=== PATIENT | female | born 1975 | race African-American/Black ===

== ENCOUNTER 2017-05-29 16:34 | Emergency (ER) | payer MEDICAID ==
--- NOTE | 2017-05-29 17:03 | Emergency Department Record ---
History of Present Illness - General Chief complaint: Female Urogenital Problem Stated complaint: POSS UTI,ABSCESS TOOTH Time Seen by Provider: 05/29/17 16:58 Source: Patient Mode of Arrival: Ambulatory Limitations: No limitations - History of Present Illness Initial comments: 42 yo female presents with 3 days of 3 weeks of discomfort with urination. She has had UTI's as well as renal stones in the past. No fever, no hematuria. She is going more often and with some suprpubic discomfort. No symptoms consistent with prior renal stones. She additional has right upper dental pain for a few weeks. No facial swelling. No facial redness. . MD Complaint: Dysuria Onset/Timin -: Week(s) Severity scale (1-10): 7 Consistency: Constant Improves with: None Worsens with: Urination Patient : No Associated Symptoms: Denies other symptoms - Related Data Sexually active: No Previous Rx's Medication Instructions Recorded Amoxicillin/Potassium Clav 1 tab PO BID #20 tablet 05/29/17 [Augmentin 875Mg/125Mg] Allergies Allergy/AdvReac Type Severity Reaction Status Date / Time ciprofloxacin [From Cipro] Allergy PT UNSURE Unverified 12/01/16 09:35 OF REACTION ciprofloxacin HCl Allergy PT UNSURE Unverified 12/01/16 09:35 [From Cipro] OF REACTION Travel Screening - Travel/Exposure Within Last 30 Days Have you traveled within the last 30 days?: No Review of Systems Constitutional: Denies: Chills, Fever, Malaise, Weakness Eyes: Denies: Eye discharge ENT: Reports: As per HPI, Dental pain. Denies: Congestion, Throat pain Respiratory: Denies: Cough, Dyspnea, Hemoptysis, Stridor Cardiovascular: Denies: Chest pain, Palpitations, Syncope Endocrine: Denies: Fatigue, Polydipsia, Polyuria Gastrointestinal: Denies: Abdominal pain, Diarrhea, Nausea, Vomiting Genitourinary: Reports: Dysuria, Frequency, Urgency. Denies: Abnormal menses Musculoskeletal: Reports: Back pain (occasional mild, ). Denies: Arthralgia Skin: Denies: Bruising, Change in color, Rash Neurological: Denies: Headache, Numbness, Weakness Psychiatric: Denies: Anxiety Hematological/Lymphatic: Denies: Blood Clots, Easy bleeding, Easy bruising, Swollen glands Past Medical History - SOCIAL HISTORY Smoking Status: Former smoker Alcohol Use: None Drug Use: None - RESPIRATORY Hx Respiratory Disorders: No - CARDIOVASCULAR Hx Cardio Disorders: No - NEURO Hx Neuro Disorders: No - GI Hx GI Disorders: No - Hx Genitourinary Disorders: Yes Hx Kidney Stones: Yes (3 lithotrypsies) Hx UTI: Yes - ENDOCRINE Hx Endocrine Disorders: No - MUSCULOSKELETAL Hx Musculoskeletal Disorders: No - PSYCH Hx Psych Problems: No - HEMATOLOGY/ONCOLOGY Hx Hematology/Oncology Disorders: No Family Medical History Any Significant Family History?: No Physical Exam - General General Appearance: Alert, Oriented x3, Cooperative, No acute distress, Other ( WEll appearing, non ill appearing, sitting very comfortably) Limitations: No limitations - Head Head exam: Normocephalic, Normal inspection - Eye Eye exam: Normal appearance. negative: Conjunctival injection - ENT ENT exam: Normal exam, Mucous membranes moist, Normal orophraynx Ear exam: Normal external inspection. negative: External canal tenderness Nasal Exam: Normal inspection. negative: Discharge, Sinus tenderness Mouth exam: Normal external inspection, Tongue normal Teeth exam: Dental caries, Dental tenderness # (3), Other (no abscess, no swelling, normal gums). negative: Gingival enlargement Throat exam: Normal inspection. negative: Tonsillar erythema, Tonsillar exudate - Neck Neck exam: Normal inspection, Full ROM. negative: Tenderness - Respiratory Respiratory exam: Normal lung sounds bilaterally. negative: Respiratory distress - Cardiovascular Cardiovascular Exam: Regular rate, Normal rhythm, Normal heart sounds - GI/Abdominal GI/Abdominal exam: Soft. negative: Distended, Tenderness - Rectal Rectal exam: Deferred - exam: Deferred - Extremities Extremities exam: Normal inspection, Full ROM, Normal capillary refill. negative: Tenderness - Back Back exam: Reports: Normal inspection, Full ROM. Denies: CVA tenderness (R), CVA tenderness (L), Muscle spasm, Paraspinal tenderness, Rash noted, Tenderness , Vertebral tenderness - Neurological Neurological exam: Alert, Normal gait, Oriented X3, Reflexes normal - Psychiatric Psychiatric exam: Normal affect, Normal mood - Skin Skin exam: Dry, Intact, Normal color, Warm Course Vital Signs 05/29/17 16:38 Temperature 98.4 F Pulse Rate 80 Respiratory 18 Rate Blood Pressure 121/66 Pulse Ox 96 - Reevaluation(s) Reevaluation #1: 05/29/17 17:05 UA sent to the lab Reevaluation #2: UA is consistent with infection Given her dental pain as well she will be placed on Augmentin She does not have fever, no signs of renal stones clinically, no signs of pyelonephritis She was given the results and we discussed reasons for immediate return 05/29/17 17:29 Disposition Disposition: Discharge Clinical Impression: Pain, dental Urinary tract infection Qualifiers: Urinary tract infection type: acute cystitis Hematuria presence: without hematuria Qualified Code(s): N30.00 - Acute cystitis without hematuria Disposition: Home, Self-Care Condition: (1) Good Instructions: Urinary Tract Infection in Women (ED) Additional Instructions: Immediately return to the ER if you have fever, pain, vomiting, or any concerns Augmentin twice daily for one week Call your doctor to be seen this week to follow up the urine culture Follow up with your dentist as scheduled Prescriptions: Amoxicillin/Potassium Clav [Augmentin 875Mg/125Mg] 1 tab PO BID #20 tablet Forms: Patient Portal Access Time of Disposition: 17:32
[2017-05-29 17:22] LABS: URINE APPEARANCE SL CLOUDY; URINE BILIRUBIN NEGATIVE (NEGATIVE); URINE BLOOD SMALL (NEGATIVE); URINE COLOR YELLOW; URINE GLUCOSE (UA) NEGATIVE (NEGATIVE); URINE KETONE NEGATIVE (NEGATIVE); URINE LEUKOCYTE ESTERASE MODERATE (NEGATIVE); URINE NITRITE POSITIVE (NEGATIVE); URINE PROTEIN NEGATIVE (NEGATIVE); URINE UROBILINOGEN 0.2 E.U./dL (0.20 - 1.00)
[2017-05-29 17:23] LABS: HCG,QUALITATIVE URINE NEGATIVE (NEGATIVE)
[2017-05-29 17:26] LABS: URINE BACTERIA 4+
[2017-05-29] MEDS ORDERED: AMOXICILLIN/POTASSIUM CLAV 875MG/125MG TABLET PO ONE (17:31)
== END 2017-05-29 17:51 | disposition home or self-care (01) ==
LOC: ER 16:34
DX: N30.00 Acute cystitis without hematuria (principal); K08.89 Other specified disorders of teeth and supporting structures
CPT/HCPCS: 81001; 81025; 99283

== ENCOUNTER 2018-05-29 09:39 | Emergency (ER) | payer MEDICAID ==
[2018-05-29] MEDS ORDERED: ONDANSETRON HCL IV 4 MG/2 ML VIAL IVP ONE (09:50)
[2018-05-29] MEDS ORDERED: KETOROLAC 30 MG/ML VIAL IVP ONE (09:50)
--- NOTE | 2018-05-29 09:54 | Emergency Department Record ---
History of Present Illness - General Chief complaint: Flank Pain Stated complaint: kidney infection Time Seen by Provider: 05/29/18 09:41 Source: Patient Mode of Arrival: Ambulatory Limitations: No limitations - History of Present Illness Initial comments: 43 yo female with a previous history of kidney stones and kidney infections presents to ED for evaluation of bilateral flank pain symptoms and intermittent fever for the past 24 hours. Patient reports that she has seen a urologist through [facility], has undergone Lithotrypsy and laser previously. Patient denies abdominal pain or change in stools, and denies previous abdominal surgery. Patient did take 1000 mg of acetaminophen [employer]. MD Complaint: Other Onset/Timin -: Days(s) Radiation: L flank, R flank Severity: Moderate Quality: Aching Consistency: Constant Improves with: None Worsens with: None Associated Symptoms: Fever/chills - Related Data Allergies Allergy/AdvReac Type Severity Reaction Status Date / Time ciprofloxacin [From Cipro] Allergy PT UNSURE Verified 05/29/18 09:52 OF REACTION ciprofloxacin HCl Allergy PT UNSURE Verified 05/29/18 09:52 [From Cipro] OF REACTION Review of Systems Constitutional: Reports: Chills, Fever. Denies: Malaise, Night sweats Eyes: Denies: Eye discharge, Eye pain ENT: Denies: Congestion, Ear pain, Epistaxis Respiratory: Denies: Cough, Dyspnea Cardiovascular: Denies: Chest pain, Dyspnea on exertion Endocrine: Reports: Fatigue. Denies: Heat or cold intolerance Gastrointestinal: Reports: Nausea. Denies: Abdominal pain, Vomiting Genitourinary: Denies: Incontinence, Retention Musculoskeletal: Denies: Arthralgia, Back pain, Gout, Joint swelling Skin: Denies: Bruising, Change in color Neurological: Denies: Abnormal gait, Confusion, Headache, Seizure Psychiatric: Denies: Anxiety Hematological/Lymphatic: Denies: Anemia, Blood Clots Past Medical History - SOCIAL HISTORY Smoking Status: Former smoker Drug Use: None - RESPIRATORY Hx Respiratory Disorders: No - CARDIOVASCULAR Hx Cardio Disorders: No - NEURO Hx Neuro Disorders: No - GI Hx GI Disorders: No - Hx Genitourinary Disorders: Yes Hx Kidney Stones: Yes (3 lithotrypsies) Hx UTI: Yes - ENDOCRINE Hx Endocrine Disorders: No - MUSCULOSKELETAL Hx Musculoskeletal Disorders: No - PSYCH Hx Psych Problems: No - HEMATOLOGY/ONCOLOGY Hx Hematology/Oncology Disorders: No Physical Exam - General General Appearance: Alert, Oriented x3, Cooperative, Moderate distress Limitations: No limitations - Head Head exam: Atraumatic, Normocephalic, Normal inspection Head exam detail: negative: Abrasion, Contusion, Cintron's sign, General tenderness, Hematoma, Laceration - Eye Eye exam: Normal appearance. negative: Conjunctival injection, Periorbital swelling, Periorbital tenderness, Scleral icterus - ENT Ear exam: negative: Auricular hematoma, Auricular trauma Nasal Exam: negative: Active bleeding, Discharge, Dried blood, Foreign body Mouth exam: negative: Drooling, Laceration, Muffled voice, Tongue elevation - Neck Neck exam: Normal inspection. negative: Meningismus, Tenderness - Respiratory Respiratory exam: Normal lung sounds bilaterally. negative: Rales, Respiratory distress, Rhonchi, Stridor - Cardiovascular Cardiovascular Exam: Regular rate, Normal rhythm, Normal heart sounds - GI/Abdominal GI/Abdominal exam: Soft. negative: Rebound, Rigid, Tenderness - Rectal Rectal exam: Deferred - exam: Deferred - Extremities Extremities exam: Normal inspection. negative: Calf tenderness, Pedal edema, Tenderness - Back Back exam: Reports: CVA tenderness (R), CVA tenderness (L) - Neurological Neurological exam: Alert, Normal gait, Oriented X3 - Psychiatric Psychiatric exam: Normal affect, Normal mood - Skin Skin exam: Normal color. negative: Abrasion Type of lesion: negative: abrasion Course - Reevaluation(s) Reevaluation #1: 05/29/18 10:37 Labs reviewed: WBC 24.4 with 91% Neutrophils UA: 4+ Bacteria TNTC WBCs 21-35 RBCs Rocephin ordered to infuse. 2nd Liter NS and Lactic acid ordered as well. Reevaluation #2: 05/29/18 11:34 CT Abdomen and Pelvis: Hydronephrosis and hydorureter left extending to the UVJ No obstructing calculus is identified. Patient was updated on all results, Rocephin has completed infusing, and 2nd liter bolus is infusing currently as well. Will initiate transfer to [facility] per patient's wishes. 05/29/18 11:57 Reevaluation #3: 05/29/18 12:20 On-call urologist was contacted (Dr. Levy), left a message regarding the patient's CT findings, UA, and laboratory status and the [facility] number to return call for further information. Left message that [facility]. Medical Decision Making - Lab Data Result diagrams: 05/29/18 10:07 05/29/18 10:07 Disposition Disposition: Transfer Clinical Impression: Pyelonephritis Hydronephrosis Qualifiers: Hydronephrosis type: with ureteropelvic junction obstruction Qualified Code(s) : Q62.11 - Congenital occlusion of ureteropelvic junction Sepsis Qualifiers: Sepsis type: sepsis due to unspecified organism Qualified Code(s): A41.9 - Sepsis, unspecified organism Disposition: [facility] Transfer Transfer To: [facility] Reason For Transfer: Urology consultation Accepting Physician: Tyler Time Discussed w/Accepting Physician: 12:00 Condition: (3) Guarded Forms: Patient Portal Access Time of Disposition: 12:00 Quality - Quality Measures Quality Measures: N/A - Blood Pressure Screening Does Patient Have Any of the Following: No Blood Pressure Classification: Normal BP Reading Systolic Measurement: 102 Diastolic Measurement: 61 Screening for High Blood Pressure: < Normal BP, F/U Not Required > [G8783]
[2018-05-29] MEDS ORDERED: 0.9 % SODIUM CHLORIDE 1000ML 1,000 ML IV SCH ×2 (10:00→11:00)
[2018-05-29 10:13] LABS: HEMATOCRIT 37.9 % (35.0-47.0); HEMOGLOBIN 12.2 gm/dl (11.6-16.0); MEAN CELL VOLUME 87.1 fl (81-97); MEAN CORPUSCULAR HGB CONC 32.2 g/dl (32-36); MEAN PLATELET VOLUME 9.3 fl (7.4-10.4); PLATELET COUNT 278 K/uL (130-400); RED BLOOD COUNT 4.35 M/uL (3.80-5.40); RED CELL DISTRIBUTION WIDTH 14.4 % (11.5-14.5)
[2018-05-29 10:15] LABS: URINE APPEARANCE SL CLOUDY; URINE BILIRUBIN NEGATIVE (NEGATIVE); URINE BLOOD LARGE (NEGATIVE); URINE COLOR YELLOW; URINE GLUCOSE (UA) NEGATIVE (NEGATIVE); URINE KETONE NEGATIVE (NEGATIVE); URINE LEUKOCYTE ESTERASE LARGE (NEGATIVE); URINE NITRITE POSITIVE (NEGATIVE); URINE UROBILINOGEN 0.2 E.U./dL (0.20 - 1.00)
[2018-05-29 10:23] LABS: HCG,QUALITATIVE URINE NEGATIVE (NEGATIVE); URINE BACTERIA 4+; URINE RBC 21 - 35 (NONE SEEN); URINE SQUAMOUS EPITHELIAL CELL 21 - 35 /hpf
[2018-05-29] MEDS ORDERED: CEFTRIAXONE SODIUM 1 GM in 0.9 % SODIUM CHLORIDE 100ML 100 ML IVPB ONE (10:23)
[2018-05-29 10:28] LABS: BLOOD UREA NITROGEN 10 mg/dL (6-20); CREATININE 0.7 mg/dL (0.5-0.9); EST GLOMERULAR FILTRATION RATE > 60 mL/min
[2018-05-29 10:31] LABS: GLUCOSE,RANDOM 97 mg/dL (74-109)
[2018-05-29 10:33] LABS: ALT/SGPT 20 U/L (<33); AST/SGOT 21 U/L (10.0-35.0)
[2018-05-29 10:34] LABS: ALBUMIN 3.9 g/dL (4.0-5.0); ALKALINE PHOSPHATASE 118 U/L (35-104); WHITE BLOOD COUNT W/O DIFF 24.4 K/uL (4.2-12.2)
[2018-05-29] MEDS ORDERED: MORPHINE SULFATE 10 MG/ML VIAL IVP ONE (10:37)
--- NOTE | 2018-05-31 10:19 | CT SCAN REPORT ---
EXAM: CT OF THE ABDOMEN AND PELVIS WITHOUT CONTRAST HISTORY: SEVERE LEFT FLANK PAIN. PRIOR KIDNEY STONES. TECHNIQUE: Thin collimation helical CT examination of the abdomen and pelvis was performed without oral or intravenous contrast administration for the express purpose of evaluating the renal collecting systems for obstructing calculi. Lack of oral and IV contrast utilization limits evaluation of the bowel and solid viscera respectively. Comparison: CT of the abdomen and pelvis without contrast dated 03/03/18. FINDINGS: The lung bases remain clear. No pleural or pericardial effusion is identified. The heart is not enlarged. The liver, spleen, pancreas, and adrenal glands remain normal in appearance to the extent visualized. The gallbladder is unremarkable and no biliary ductal dilatation is seen. The kidneys remain normal in position and smoothly marginated. The left kidney remains slightly prominent in size with perinephric fat stranding. There is again noted mild left hydroureteronephrosis down to the level of the UVJ, but without definite obstructing calculus visualized. The etiology of this remains uncertain. An underlying infectious process cannot be excluded. No definite intrinsic urinary bladder abnormality is seen though evaluation is limited by lack of distention. There is trace free fluid in the cul-de-sac, stable. The right kidney and right renal collecting system are normal in appearance. The uterus is again noted in the midline. Fallopian tube occlusive devices are in place. No new pelvic mass nor lymphadenopathy is seen. There is a tiny fat filled umbilical hernia redemonstrated and just inferior to the umbilicus is a tiny fat filled ventral wall hernia not as well seen on the prior examination. This measures 10 mm in diameter. It appears uncomplicated. No gross bowel dilatation nor bowel wall thickening. The appendix is visualized and normal in appearance. No new lytic or blastic bone lesion. IMPRESSION: 1. PERSISTENT MILD LEFT HYDROURETERONEPHROSIS DOWN TO THE LEVEL OF THE UVJ WITHOUT DEFINITE OBSTRUCTING CALCULUS VISUALIZED. THE ETIOLOGY OF THIS IS UNCERTAIN. THERE IS CONTINUED MILD LEFT PERINEPHRIC FAT STRANDING AND AN ACTIVE INFLAMMATORY/INFECTIOUS PROCESS CANNOT BE EXCLUDED. 2. TRACE FREE FLUID REDEMONSTRATED IN THE CUL-DE-SAC. 3. NORMAL APPENDIX. JOB NUMBER: [id number] [facility]
== END 2018-05-29 13:56 | disposition short-term general hospital (02) ==
LOC: ER 09:39
DX: N10 Acute pyelonephritis (principal); A41.9 Sepsis, unspecified organism; Q62.11 Congenital occlusion of ureteropelvic junction; R50.81 Fever presenting with conditions classified elsewhere; Z87.442 Personal history of urinary calculi; Z87.891 Personal history of nicotine dependence
CPT/HCPCS: 99285 ×2; 96365; 96375; 96361; 83605; 80053; 81001; 81025; 85027; 74176; J1885; J2405; J2270; J7030

== ENCOUNTER 2019-01-12 17:49 | Emergency (ER) | payer MEDICAID ==
--- NOTE | 2019-01-12 18:05 | Emergency Department Record ---
History of Present Illness - General Chief complaint: Flank Pain Stated complaint: FLANK PAIN Time Seen by Provider: 01/12/19 17:59 Source: Patient Mode of Arrival: Ambulatory Limitations: No limitations - History of Present Illness Initial comments: 43 yo female presents with three days of flank pain, dysuria, nausea and vomiting. She reports an extensive history of renal stones and urinary tract infections. She has had multiple lithotripsy in the past. No diarrhea. No fever. Dr Moser is her urologist. Her Tmax at home was 102. She took 500mg of Tylenol about 4 hours ago. MD Complaint: Dysuria Onset/Timin -: Days(s) Location: Suprapubic Radiation: L flank, R flank Severity: Moderate Severity scale (1-10): 8 Quality: Sharp Consistency: Constant Improves with: Other Worsens with: Movement, Urination Patient : No Associated Symptoms: Dysuria, Fever/chills, Nausea/vomiting - Related Data Allergies Allergy/AdvReac Type Severity Reaction Status Date / Time ciprofloxacin [From Cipro] Allergy PT UNSURE Unverified 06/18/18 16:16 OF REACTION ciprofloxacin HCl Allergy PT UNSURE Unverified 06/18/18 16:16 [From Cipro] OF REACTION Travel Screening - Travel/Exposure Within Last 30 Days Have you traveled within the last 30 days?: No Review of Systems Constitutional: Reports: Chills, Fever. Denies: Malaise, Weakness Eyes: Denies: Eye discharge ENT: Denies: Congestion Respiratory: Denies: Cough, Dyspnea, Hemoptysis, Stridor, Wheezes Cardiovascular: Denies: Chest pain, Dyspnea on exertion, Edema Endocrine: Denies: Fatigue Gastrointestinal: Reports: Abdominal pain, Nausea, Vomiting. Denies: Constipation, Diarrhea, Hematemesis, Hematochezia Genitourinary: Reports: Dysuria, Frequency, Hematuria, Urgency Musculoskeletal: Reports: Back pain Skin: Denies: Bruising, Change in color, Rash Neurological: Denies: Headache Psychiatric: Denies: Anxiety Hematological/Lymphatic: Denies: Easy bleeding, Easy bruising Past Medical History - SOCIAL HISTORY Smoking Status: Former smoker - RESPIRATORY Hx Respiratory Disorders: No - CARDIOVASCULAR Hx Cardio Disorders: No - NEURO Hx Neuro Disorders: No - GI Hx GI Disorders: No - Hx Genitourinary Disorders: Yes Hx Kidney Stones: Yes (8 lithotrypsies) Hx UTI: Yes - ENDOCRINE Hx Endocrine Disorders: No - MUSCULOSKELETAL Hx Musculoskeletal Disorders: No - PSYCH Hx Psych Problems: No - HEMATOLOGY/ONCOLOGY Hx Hematology/Oncology Disorders: No Family Medical History Any Significant Family History?: No Physical Exam - General General Appearance: Alert, Oriented x3, Cooperative, No acute distress Limitations: No limitations - Head Head exam: Atraumatic, Normal inspection - Eye Eye exam: Normal appearance, PERRL. negative: Conjunctival injection - ENT ENT exam: Normal exam Ear exam: Normal external inspection Nasal Exam: Normal inspection Mouth exam: Normal external inspection - Neck Neck exam: Normal inspection - Respiratory Respiratory exam: Normal lung sounds bilaterally. negative: Respiratory distress - Cardiovascular Cardiovascular Exam: Normal rhythm, Normal heart sounds, Tachycardia - GI/Abdominal GI/Abdominal exam: Soft. negative: Distended, Guarding, Tenderness - Rectal Rectal exam: Deferred - exam: Deferred - Extremities Extremities exam: Normal inspection. negative: Pedal edema, Tenderness - Back Back exam: Reports: CVA tenderness (R), Full ROM, Tenderness. Denies: CVA tenderness (L) - Neurological Neurological exam: Alert, Oriented X3 - Psychiatric Psychiatric exam: Normal affect, Normal mood - Skin Skin exam: Dry, Intact, Normal color, Warm Course - Reevaluation(s) Reevaluation #1: EMR reviewed from prior visits. 01/12/19 18:13 01/12/19 18:31 The CBC was reviewed The WBC count is 17 The UA is N+ and LE + Temperature was 100.7 01/12/19 18:33 The HCG is negative 01/12/19 18:39 UA consistent with UTI Rocephen 2gm had been ordered 01/12/19 18:56 Renal Function is normal 01/12/19 19:[address] scan was read as no renal stone or visible obstruction, left sided mild hydronephrosis as noted on prior studies. 01/12/19 19:55 The case was discussed with Dr Giles. He accepts the patient for transfer. She is improved and stable for transfer at this time Medical Decision Making - Lab Data Result diagrams: 01/12/19 18:05 01/12/19 18:05 Disposition Disposition: Transfer Clinical Impression: Urinary tract infection Disposition: Acute Care Hospital Transfer Transfer To: [facility] Reason For Transfer: Urosepsis Accepting Physician: Tisha Time Discussed w/Accepting Physician: 19:54 Condition: (2) Stable Forms: Patient Portal Access Time of Disposition: 19:54 Quality - Quality Measures Quality Measures: N/A - Blood Pressure Screening Does Patient Have Any of the Following: Active Dx of HTN Blood Pressure Classification: Normal BP Reading Systolic Measurement: 99 Diastolic Measurement: 53 Screening for High Blood Pressure: Patient Exclusion, Hx of HTN [G9744]
[2019-01-12 18:23] LABS: BASO % 0.2 % (0-6); EOS % 0.2 % (0-6); HEMATOCRIT 35.5 % (35.0-47.0); LYMPH % 7.6 % (16-45); MEAN CELL VOLUME 85.1 fl (81-97); MEAN PLATELET VOLUME 9.7 fl (7.4-10.4); MONO % 3.8 % (0-9); PLATELET COUNT 388 K/uL (130-400); RED BLOOD COUNT 4.17 M/uL (3.80-5.40)
[2019-01-12 18:24] LABS: URINE BILIRUBIN NEGATIVE (NEGATIVE); URINE BLOOD LARGE (NEGATIVE); URINE COLOR YELLOW; URINE GLUCOSE (UA) NEGATIVE (NEGATIVE); URINE KETONE NEGATIVE (NEGATIVE); URINE LEUKOCYTE ESTERASE SMALL (NEGATIVE); URINE NITRITE POSITIVE (NEGATIVE)
[2019-01-12 18:26] LABS: URINE APPEARANCE SL CLOUDY
[2019-01-12 18:27] LABS: HCG,QUALITATIVE URINE NEGATIVE (NEGATIVE); MEAN CORPUSCULAR HEMOGLOBIN 26.3 pg (27-33)
[2019-01-12] MEDS: ONDANSETRON HCL IV 4 MG/2 ML VIAL IVP ONE (18:29)
[2019-01-12] MEDS: KETOROLAC 30 MG/ML VIAL IVP ONE (18:29)
[2019-01-12] MEDS: MORPHINE SULFATE 10 MG/ML VIAL IVP ONE (18:30)
[2019-01-12] MEDS: 0.9 % SODIUM CHLORIDE 1,000 ML BAG IV ONE (18:31)
[2019-01-12] MEDS: ACETAMINOPHEN 500 MG TABLET PO ONE (18:31)
[2019-01-12 18:34] LABS: PLATELET ESTIMATE NORMAL (NORMAL)
[2019-01-12 18:36] LABS: URINE WBC 21 - 35 (0-2/hpf)
[2019-01-12 18:37] LABS: URINE BACTERIA 3+
[2019-01-12 18:40] LABS: BLOOD UREA NITROGEN 6 mg/dL (6-20); CREATININE 0.7 mg/dL (0.5-0.9); EST GLOMERULAR FILTRATION RATE > 60 mL/min
[2019-01-12 18:41] LABS: TOTAL PROTEIN 8.8 g/dL (6.6-8.7)
[2019-01-12 18:43] LABS: GLUCOSE,RANDOM 149 mg/dL (74-109)
[2019-01-12 18:45] LABS: ALT/SGPT 36 U/L (<33); AST/SGOT 17 U/L (10.0-35.0)
[2019-01-12] MEDS: CEFTRIAXONE SODIUM 2 GM in 0.9 % SODIUM CHLORIDE 100ML 100 ML IVPB ONE (18:45)
[2019-01-12 18:46] LABS: ALB/GLOB RATIO 0.8 (1.1-1.8); ALBUMIN 3.9 g/dL (4.0-5.0); ALKALINE PHOSPHATASE 138 U/L (45-87)
[2019-01-12] MEDS ORDERED: 0.9 % SODIUM CHLORIDE 1000ML 1,000 ML IV ONE (19:20)
--- NOTE | 2019-01-14 05:42 | CT SCAN REPORT ---
EXAM: EMERGENCY CT OF THE ABDOMEN AND PELVIS WITHOUT CONTRAST HISTORY: RIGHT FLANK PAIN AND BILATERAL LOWER ABDOMINAL PAIN WITH NAUSEA AND VOMITING FOR THREE DAYS. MULTIPLE PRIOR LITHOTRIPSIES. TECHNIQUE: Axial CT scan of the abdomen and pelvis was performed without oral or IV contrast. Comparison: CT of the abdomen and pelvis 05/29/18. FINDINGS: No calcified gallstones seen within the gallbladder. No intrarenal calculi identified on either side. There is no hydronephrosis or hydroureter on the right. There again appears to be mild hydronephrosis on the left similar to that seen back on 05/29/18 and slight prominence of the left ureter is also similar to before. No actual ureteral calculus seen on either side and the mild dilatation of the left renal collecting system and ureter may be chronic for the patient. No bladder calculus evident. Metallic densities lateral to the uterus bilaterally as before presumably related to prior tubal ligation. Evaluation of the bowel and viscera is extremely limited without oral or IV contrast. Given this limitation, no definite hepatic, splenic, adrenal, pancreatic, or renal mass identified. The heart size is normal. A very small amount of free fluid in the pelvis may simply be physiologic in nature. I believe the appendix is identified as a normal caliber structure with no appendicitis evident. The lung bases appear clear. No free intraperitoneal air identified. There is a tiny umbilical anterior abdominal wall hernia containing adipose tissue, but no bowel, essentially unchanged from before. IMPRESSION: 1. NO DEFINITE URINARY TRACT CALCULI IDENTIFIED. 2. PERSISTENT MILD HYDRONEPHROSIS AND HYDROURETER ON THE LEFT APPEARING ESSENTIALLY UNCHANGED FROM 05/29/18 AND IS PRESUMABLY CHRONIC FOR THE PATIENT. 3. PRESUMED TUBAL LIGATION PROCEDURE BILATERALLY BEFORE. 4. A VERY SMALL AMOUNT OF FREE FLUID IN THE PELVIS MAY SIMPLY BE PHYSIOLOGIC IN NATURE. NO FREE AIR EVIDENT. 5. THE APPENDIX APPEARS NEGATIVE. 6. TINY UMBILICAL ABDOMINAL WALL HERNIA CONTAINING ADIPOSE TISSUE, BUT NO BOWEL BEFORE. J[facility]BER: [id number] [facility]
== END 2019-01-12 20:31 | disposition short-term general hospital (02) ==
LOC: ER 17:49
DX: N39.0 Urinary tract infection, site not specified (principal); R31.29 Other microscopic hematuria; R30.0 Dysuria; M54.5 Low back pain; R11.2 Nausea with vomiting, unspecified; R50.81 Fever presenting with conditions classified elsewhere; Z87.442 Personal history of urinary calculi
CPT/HCPCS: 99285 ×2; 96365; 96375; 96361; 80053; 81001; 81025; 85027; 74176; J1885; J2405; J2270; J7030

== ENCOUNTER 2019-12-15 12:30 | Emergency (ER) | payer SELFPAY ==
[2019-12-15] MEDS ORDERED: 0.9 % SODIUM CHLORIDE 1,000 ML BAG IV ONE (12:50)
[2019-12-15] MEDS ORDERED: ONDANSETRON HCL IV 4 MG/2 ML VIAL IV ONE (12:50)
[2019-12-15 12:53] LABS: URINE APPEARANCE SL CLOUDY; URINE BILIRUBIN NEGATIVE (NEGATIVE); URINE BLOOD SMALL (NEGATIVE); URINE COLOR YELLOW; URINE GLUCOSE (UA) NEGATIVE (NEGATIVE); URINE KETONE NEGATIVE (NEGATIVE); URINE LEUKOCYTE ESTERASE MODERATE (NEGATIVE); URINE NITRITE POSITIVE (NEGATIVE); URINE UROBILINOGEN 0.2 E.U./dL (0.20 - 1.00)
--- NOTE | 2019-12-15 12:54 | Emergency Department Record ---
History of Present Illness - General Chief complaint: Female Urogenital Problem Stated complaint: UTI Time Seen by Provider: 12/15/19 12:40 Source: Patient Mode of Arrival: Ambulatory Limitations: No limitations - History of Present Illness Initial comments: The patient is here due to R flank pain for 2 days. The pain is sharp and cramping and she has had intermittent nausea, vomiting and fever. The patient last had Tylenol 3 hours ago. The patient also has had mild dysuria. She does have a hx of kidney stones and kidney infections but has not had a stone for a few years. MD Complaint: Dysuria, Other Onset/Timin -: Days(s) Radiation: R flank Severity: Severe Severity scale (1-10): 8 Quality: Sharp Consistency: Constant Improves with: None Worsens with: None Patient : No LMP Date: 11/08/19 Gestational Age (wks) based on LMP: 7 Associated Symptoms: Nausea/vomiting - Related Data Previous Rx's Medication Instructions Recorded Cephalexin [Keflex] 500 mg PO QID #40 cap 12/15/19 Allergies Allergy/AdvReac Type Severity Reaction Status Date / Time ciprofloxacin [From Cipro] AdvReac PT UNSURE Verified 12/15/19 13:59 OF REACTION Travel Screening - Travel/Exposure Within Last 30 Days Have you traveled within the last 30 days?: No Review of Systems Constitutional: Reports: Fever, Malaise. Denies: Chills Eyes: Denies: Eye discharge ENT: Denies: Congestion Respiratory: Denies: Cough, Dyspnea Past Medical History - SOCIAL HISTORY Smoking Status: Former smoker Alcohol Use: None Drug Use: None - RESPIRATORY Hx Respiratory Disorders: No - CARDIOVASCULAR Hx Cardio Disorders: No - NEURO Hx Neuro Disorders: No - GI Hx GI Disorders: No - Hx Genitourinary Disorders: Yes Hx Kidney Stones: Yes (8 lithotrypsies) Hx UTI: Yes - ENDOCRINE Hx Endocrine Disorders: No - MUSCULOSKELETAL Hx Musculoskeletal Disorders: No - PSYCH Hx Psych Problems: No - HEMATOLOGY/ONCOLOGY Hx Hematology/Oncology Disorders: No Family Medical History Any Significant Family History?: No Physical Exam - General General Appearance: Alert, Oriented x3, Cooperative, No acute distress - Head Head exam: Atraumatic, Normocephalic, Normal inspection - Eye Eye exam: Normal appearance, PERRL - ENT Throat exam: Normal inspection. negative: Tonsillar erythema, Tonsillar exudate - Neck Neck exam: Normal inspection, Full ROM. negative: Tenderness - Respiratory Respiratory exam: Normal lung sounds bilaterally. negative: Respiratory distress - Cardiovascular Cardiovascular Exam: Regular rate, Normal rhythm, Normal heart sounds - GI/Abdominal GI/Abdominal exam: Soft, Normal bowel sounds. negative: Tenderness - Extremities Extremities exam: Normal inspection, Full ROM, Normal capillary refill. negativ e: Tenderness - Back Back exam: Denies: CVA tenderness (L) - Neurological Neurological exam: Alert. negative: Motor sensory deficit Course Vital Signs 12/15/19 12:38 Temperature 98.8 F Pulse Rate 87 Respiratory 20 Rate Blood Pressure 121/72 Pulse Ox 100 - Reevaluation(s) Reevaluation #1: The patient did develop a low grade fever here and is still having some R flank pain. I did discuss the fact that it appears she may have a R kidney infection but the last urine that was a cath specimen was normal. I did also discuss the fact the safest thing to do is keep her in he hospital overnight at least for IV Abx's and further testing. The patient then became angry since she is still having some flank pain and would like to leave. I did explain to her that the risks of leaving are that she could go home and go septic, have a stroke, become disabled and even . The patient understands and accepts the risks and presently has proper decision making capacity. She was instructed to return to the ER at any time for recheck or if she changes her mind about being admitted. 12/15/19 15:16 Reevaluation #2: I again did discuss the need to be admitted to the hospital with the patient and she again is refusing. I also did offer to transfer her to another hospital but she is refusing that also and just wants to leave AMA. 12/15/19 15:33 Medical Decision Making - Data Complexity MDM Data: Labs Ordered and/or Reviewed, X-Ray Ordered and/or Reviewed - Lab Data Result diagrams: 12/15/19 13:10 12/15/19 13:10 - Radiology Data Radiology results: Report reviewed (CT: Neg stone but stranding of the R kidney which could indicate a recently passed stone or infection.) Disposition Disposition: Discharge Clinical Impression: Pyelonephritis Disposition: Against Medical Advice Condition: (2) Stable Instructions: Kidney Infection (ED) Additional Instructions: Please drink plenty of fluids and use Tylenol and Motrin for pain and fever. Please continue the Keflex as directed and see your doctor for recheck JORDIN. Return to the ER for any worsening symptoms or if you change your mind about being evaluated here further. Prescriptions: Cephalexin [Keflex] 500 mg PO QID #40 cap Forms: Patient Portal Access Time of Disposition: 15:21 Quality - Quality Measures Quality Measures: N/A - Blood Pressure Screening View Details: Yes Does Patient Have Any of the Following: No Blood Pressure Classification: Pre-Hypertensive BP Reading Systolic Measurement: 121 Diastolic Measurement: 72 Screening for High Blood Pressure: < Pre-Hypertensive BP, F/U Documented > [G8950] Pre-Hypertensive Follow-up Interventions: Referral to alternative/primary care provider.
[2019-12-15 12:58] LABS: HCG,QUALITATIVE URINE NEGATIVE (NEGATIVE); URINE BACTERIA 2+
[2019-12-15 13:15] LABS: ABSOLUTE NEUTROPHIL COUNT 19.74; HEMATOCRIT 34.3 % (35.0-47.0); HEMOGLOBIN 10.2 gm/dl (11.6-16.0); MEAN CELL VOLUME 81.3 fl (81-97); MEAN CORPUSCULAR HGB CONC 29.7 g/dl (32-36); MEAN PLATELET VOLUME 9.6 fl (7.4-10.4); PLATELET COUNT 349 K/uL (130-400); RED BLOOD COUNT 4.22 M/uL (3.80-5.40); RED CELL DISTRIBUTION WIDTH 18.1 % (11.5-14.5)
[2019-12-15 13:18] LABS: MEAN CORPUSCULAR HEMOGLOBIN 24.1 pg (27-33)
[2019-12-15 13:19] LABS: WHITE BLOOD COUNT W/O DIFF 21.9 K/uL (4.2-12.2)
[2019-12-15 13:22] LABS: BLOOD UREA NITROGEN 6 mg/dL (6-20)
[2019-12-15 13:23] LABS: CREATININE 0.6 mg/dL (0.5-0.9); EST GLOMERULAR FILTRATION RATE > 60 mL/min
[2019-12-15 13:25] LABS: GLUCOSE,RANDOM 127 mg/dL (74-109)
[2019-12-15 13:28] LABS: C-REACTIVE PROTEIN 15.91 mg/dL (<0.5)
[2019-12-15 13:29] LABS: PLATELET ESTIMATE NORMAL (NORMAL)
[2019-12-15] MEDS ORDERED: ACETAMINOPHEN 1,000 MG/100 ML BTL IVPB ONE (13:37)
[2019-12-15 13:46] LABS: URINE APPEARANCE SL CLOUDY; URINE BILIRUBIN NEGATIVE (NEGATIVE); URINE BLOOD MODERATE (NEGATIVE); URINE COLOR YELLOW; URINE GLUCOSE (UA) NEGATIVE (NEGATIVE); URINE KETONE NEGATIVE (NEGATIVE); URINE LEUKOCYTE ESTERASE MODERATE (NEGATIVE); URINE NITRITE NEGATIVE (NEGATIVE); URINE UROBILINOGEN 0.2 E.U./dL (0.20 - 1.00)
[2019-12-15] MEDS ORDERED: KETOROLAC 30 MG/ML VIAL IVP ONE (13:48)
--- NOTE | 2019-12-15 14:00 | CT SCAN REPORT ---
EXAMINATION: CT Abdomen and Pelvis without IV Contrast EXAM DATE: 12/15/2019 1:26 PM TECHNIQUE: Standard protocol CT imaging of the abdomen and pelvis was performed without intravenous c ontrast. INDICATION: Right flank pain and frequent urination for 3 days COMPARISON: 01/12/2019 FINDINGS: CT abdomen: No evidence of urinary tract calculus. Borderline prominence of the right pelvicalyceal c ollecting system, with mild soft tissue density stranding in the perinephric fat. These findings may be secondary to a recently passed stone. The possibility of pyelonephritis is also considered. Left renal parenchymal scarring. No left hydronephrosis or hydroureter. Clear lung bases. Normal heart size. CT pelvis: A very small volume of free fluid is seen in the dependent pelvis. No free air. Small righ t adnexal cyst. Normal-appearing appendix. No acute bony abnormality. IMPRESSION: 1. No evidence of urinary tract calculus. 2. Borderline prominence of the right pelvicalyceal collecting system and mild soft tissue density st randing in the right perinephric fat. These findings may be secondary to a recently passed stone, gilberto sourav possible pyelonephritis. 3. Very small volume of free fluid in the dependent pelvis. 4. Normal-appearing appendix. Dictated by: Emmanuel Byrnes MD on 12/15/2019 1:54 PM. .
[2019-12-15] MEDS ORDERED: CEFTRIAXONE 1GM/50ML BAG 1 GM/50 ML BAG IVPB ONE (14:12)
[2019-12-15 14:27] LABS: URINE APPEARANCE CLEAR; URINE BILIRUBIN NEGATIVE (NEGATIVE); URINE BLOOD SMALL (NEGATIVE); URINE COLOR YELLOW; URINE GLUCOSE (UA) NEGATIVE (NEGATIVE); URINE KETONE NEGATIVE (NEGATIVE); URINE LEUKOCYTE ESTERASE NEGATIVE (NEGATIVE); URINE NITRITE NEGATIVE (NEGATIVE); URINE UROBILINOGEN 0.2 E.U./dL (0.20 - 1.00)
[2019-12-15 14:42] LABS: URINE EPITHELIAL CELLS NONE SEEN (FEW); URINE WBC NONE SEEN (0-2/hpf)
== END 2019-12-15 15:44 | disposition left against medical advice (07) ==
LOC: ER 12:30
DX: N10 Acute pyelonephritis (principal); R11.2 Nausea with vomiting, unspecified; Z87.442 Personal history of urinary calculi; Z87.440 Personal history of urinary (tract) infections; Z87.891 Personal history of nicotine dependence
CPT/HCPCS: 99284 ×2; 96365; 96366; 96375; 96361; 86140; 80048; 81001; 81003; 81025; 85027; 74176; J1885; J2405; J0696; J7030